=== PATIENT | female | born 1995 | race Two or more races ===

== ENCOUNTER 2020-12-12 23:42 | Emergency (ER) | payer OTHER ==
[2020-12-13] MEDS ORDERED: ACETAMINOPHEN 500 MG TABLET (FP) PO ONE (00:04)
[2020-12-13 00:05] VITALS: TEMP 98.3; BMI 25.3
[2020-12-13 00:30] LABS: BASO % 0.4 % (0-2.0); EOS % 2.2 % (0-4.5); HEMATOCRIT 34.8 % (32.4-45.2); HEMOGLOBIN 11.7 GM/dL (10.7-15.3); LYMPH % 21.2 % (8-40); MCH 29.6 pg (25.7-33.7); MCHC 33.4 g/dl (32.0-36.0); MEAN CELL VOLUME 88.6 fl (80-96); MEAN PLT VOLUME 8.3 fl (7.5-11.1); MONO % 10.5 % (3.8-10.2); NEUT % 65.7 % (42.8-82.8); PLATELET COUNT 306 10^3/uL (134-434); RBC 3.93 M/mm3 (3.60-5.2); RDW 14.7 % (11.6-15.6); WHITE BLOOD COUNT 11.3 K/mm3 (4.0-10.0)
[2020-12-13 00:32] LABS: PH,URINE 7.5 (5.0-8.0); URINE APPEARANCE CLEAR; URINE BILIRUBIN NEGATIVE (NEGATIVE); URINE COLOR YELLOW; URINE GLUCOSE (UA) NEGATIVE (NEGATIVE); URINE KETONE NEGATIVE (NEGATIVE); URINE LEUK ESTERASE NEGATIVE (NEGATIVE); URINE NITRITE NEGATIVE (NEGATIVE); URINE PROTEIN NEGATIVE (NEGATIVE); URINE UROBILINOGEN 0.2 mg/dL (0.2-1.0)
[2020-12-13 00:48] LABS: CHLORIDE 108 mmol/L (98-107); SODIUM 140 mmol/L (136-145)
[2020-12-13 00:50] LABS: CALCIUM 8.8 mg/dL (8.5-10.1)
[2020-12-13 00:51] LABS: ALBUMIN 3.6 g/dl (3.4-5.0); ANION GAP 4 MMOL/L (8-16); BLOOD UREA NITROGEN 8.4 mg/dL (7-18); CO2 29 mmol/L (21-32); GLUCOSE,RANDOM 82 mg/dL (74-106); MAGNESIUM 1.9 mg/dL (1.8-2.4)
[2020-12-13 00:53] LABS: SGPT/ALT 16 U/L (13-61)
[2020-12-13 00:54] LABS: CREATININE 0.7 mg/dL (0.55-1.3); SGOT/AST 31 U/L (15-37)
[2020-12-13 00:55] LABS: BILIRUBIN,TOTAL 0.3 mg/dL (0.2-1); TOT PROT 7.4 g/dl (6.4-8.2)
[2020-12-13 00:57] LABS: ALK PHOS 64 U/L (45-117)
[2020-12-13] MEDS ORDERED: ACETAMINOPHEN 500 MG TABLET (FP) ONE (01:01)
[2020-12-13 02:05] VITALS: BP 118/76; PULSE 83
== END 2020-12-13 02:05 | disposition home or self-care (01) ==
LOC: JER 23:42
DX: R07.9 Chest pain, unspecified (principal)
CPT/HCPCS: 36415; 71046-TC-FY; 80053; 81003; 82550; 82553; 83735; 84484; 84703; 85025; 93005; 93010; 99285-25; C9803; U0003; U0005